=== PATIENT | male | born 1965 | race Caucasian/White ===

== ENCOUNTER 2023-02-25 09:53 | Emergency (ER) | payer OTHER, MEDICAID, SELFPAY ==
[2023-02-25 10:08] VITALS: BP 176/107; PULSE 82; RESP 18; TEMP 36.7; O2SAT 96; BMI 21.9
--- NOTE | 2023-02-25 10:31 | ED.BACK ---
HPI - Back Pain/Injury General Chief Complaint: Back Pain/Injury Stated Complaint: broken disc in back/leg numb/falling down Time Seen by Provider: 02/25/23 10:30 Source: patient History of Present Illness HPI Narrative: Patient brought here by his father. Complains of mid and lower back pain. Patient states 4 weeks ago he injured his mid back, he fell down any states he injured 2 bones in his mid back. He was seen at [facility]. He states he had CT scan imaging done. Four days ago he was working underneath his car trying to change out the transmission. He got up and felt a pop/pain his mid back. Pain radiates to his left foot. No loss control of bowel or bladder. No incontinence or retention since then. No saddle paresthesia. Boot removed patient not wearing socks. Related Data Allergies Allergy/AdvReac Type Severity Reaction Status Date / Time No Known Drug Allergies Allergy Verified 02/25/23 10:21 Review of Systems Review of Systems Narrative: GENERAL: negative chills, fatigue, malaise, fever, sweats. HEENT: negative sinus pain, ear pain, sore throat RESPIRATORY: negative dyspnea, cough CARDIOVASCULAR: negative chest pain, palpitations GASTROINTESTINAL: negative nausea, vomiting, abdominal pain : negative dysuria, frequency, hematuria MUSCULOSKELETAL: Positive back/muscle or bony pain SKIN: negative rash, skin lesions NEUROLOGIC: negative weakness, numbness ROS Unobtainable: All systems reviewed & are unremarkable except as noted in HPI and below Patient History Social History Smoking Status: Current every day smoker Smoking Status: Current every day smoker tobacco type: cigarettes alcohol intake frequency: 3 or more drinks per day Alcohol type: beer Substance Use Type: does not use Exam Narrative Exam Narrative: GENERAL: in no distress, not toxic not dyspneic HEAD: Normocephalic. EYES: Pupils equal round ENT: Mucous membranes moist. NECK: Trachea midline. CARDIOVASCULAR: Regular rate and rhythm RESPIRATORY: Clear to auscultation. Breath sounds equal bilaterally. No wheezes, rales, or rhonchi. GASTROINTESTINAL: Abdomen soft, non-tender EXTREMITIES: No gross deformities. BACK: No flank tenderness. There is midline tenderness at the midthoracic spine. No midline tenderness or step-off of the cervical thoracic or lumbar spine. Lower back nontender. Patient has pain with leaning forward and back. Also with doing side bends. Complains of mid back pain. Patient does have steady self gait in the hallway to his room. However slightly antalgic with the right leg but no foot drop. Increased pain with straight leg on the right at 60? NEURO: AOx4. Steady self gait. No foot drop. Strong bilateral patellar reflexes and ankle flexion-extension. Light touch intact to right foot. Wiggles toes. Strong bilateral ankle flexion-extension as well as patellar reflexes and hip flexion and extension. SKIN: Warm and dry PSYCH: Not anxious, is cooperative Initial Vital Signs Initial Vital Signs: Vital Signs Temperature 98.1 F 02/25/23 10:08 Pulse Rate 82 02/25/23 10:08 Respiratory Rate 18 02/25/23 10:08 Blood Pressure 176/107 H 02/25/23 10:08 Pulse Oximetry 96 02/25/23 10:08 Oxygen Delivery Method Room Air 02/25/23 10:08 Course Orders Ordered: ED Orders 02/25/23 10:31 CT lumbar spine wo con Stat CT thoracic spine wo con Stat 02/25/23 12:24 MR thoracic spine wo con Stat Discontinued Medications Hydromorphone HCl (Hydromorphone 1 Mg Inj) 1 mg IM NOW ONE Stop: 02/25/23 10:32 Last Admin: 02/25/23 10:48 Dose: 1 mg Documented By: ROOPA Hydromorphone HCl (Hydromorphone 1 Mg Inj) 1 mg IM NOW ONE Stop: 02/25/23 12:43 Last Admin: 02/25/23 13:22 Dose: 1 mg Documented By: ROOPA Lorazepam (Lorazepam 0.5 Mg Tablet) 1 mg PO NOW ONE Stop: 02/25/23 12:25 Last Admin: 02/25/23 13:44 Dose: 1 mg Documented By: ROOPA Ondansetron HCl (Ondansetron 4 Mg Odt) 4 mg SL NOW ONE Stop: 02/25/23 10:32 Last Admin: 02/25/23 10:47 Dose: 4 mg Documented By: ROOPA Vital Signs Vital signs: Vital Signs - 8 hr 02/25/23 10:08 02/25/23 12:14 02/25/23 13:49 Temperature 98.1 F Pulse Rate 82 95 H 104 H Respiratory Rate 18 16 20 Blood Pressure 176/107 H 113/83 146/94 H Pulse Oximetry 96 97 98 Oxygen Delivery Method Room Air Room Air Room Air 02/25/23 15:56 Temperature Pulse Rate 94 H Respiratory Rate 18 Blood Pressure 144/80 H Pulse Oximetry 97 Oxygen Delivery Method Room Air MDM - Back Pain/Injury Imaging Data CT lumbar spine: Radiologist's Impression: [address] [address] [address] Scan Report Signed Patient: Leanna Persaud MR#: [id number] : 1965 Acct:[id number] Age/Sex: 57 / M Date of Service: 02/25/23 Loc: ED Accession Number: [id number] Procedure: CT lumbar spine wo con Ordering Provider: Diaz Hightower MD PROCEDURE: CT LUMBAR SPINE WO CON INDICATIONS: Pain/injury TECHNIQUE: Noncontrast 3 mm thick sections acquired from the T12 level to the sacrum. Sagittal and coronal reformats were constructed. For radiation dose reduction, the following was used: automated exposure control. COMPARISON: None. FINDINGS: Image quality: Excellent. Bones: T11 and T12 compression deformities are partially characterized on this limited view of the thoracic spine. Vertebral body height of the lumbar spine is preserved. A Schmorl's node is present at the superior L1 and L3 endplates. Mild anterior osteophytes are present throughout the lumbar spine. There is overall preservation of the intervertebral disc spaces. No neural foraminal stenosis. No spondylolisthesis or spondylolysis. No canal stenosis. Soft tissues: No retroperitoneal masses or hematomas. Visualized aorta is normal in caliber. Dense atheromatous calcifications are present throughout the abdominal aorta and iliac arteries. Paraspinous hematoma is noted at the T12 vertebral body on axial views. IMPRESSION: 1. Mild degenerative change of the lumbar spine. No compression deformities. Dictated by: Lynette Mercado M.D. on 02/25/2023 at 12:05 Approved by: Lynette Mercado M.D. on 02/25/2023 at 12:07 CT thoracic spine: Radiologist's Impression: [address] [address] [address] Scan Report Signed Patient: Leanna Persaud MR#: [id number] : 1965 Acct:[id number] Age/Sex: 57 / M Date of Service: 02/25/23 Loc: ED Accession Number: [id number] Procedure: CT thoracic spine wo con Ordering Provider: Diaz Hightower MD PROCEDURE: CT THORACIC SPINE WO CON INDICATIONS: Pain/injury TECHNIQUE: Noncontrast 3 mm thick sections acquired through the region of interest in the thoracic spine. Sagittal and coronal reformats were then constructed. For radiation dose reduction, the following was used: automated exposure control. COMPARISON: [facility], CT, CT ABDOMEN PELVIS WITH CONTRAST, 01/31/2023, 21:52. [facility], CR, XR THORACIC SPINE 3 VIEWS, 02/09/2023, 22:07. FINDINGS: Image quality: Excellent. Bones: Acute compression deformities at T12 and T11 are redemonstrated and appear similar in extent to the plain films dated February 09, [address] dated March 02, 2023. As before, there is approximately 50% vertebral body height loss at T11 and approximately 25% vertebral body height loss at T12. No bony canal stenosis. Both fractures appear to involve the anterior and middle column. The posterior elements are not involved. No new compression deformities. Soft tissues: A small paravertebral hematoma surrounds the T11 and T12 vertebral bodies and appears slightly increased in extent when compared with the CT dated December 31, 2022. The thyroid gland is unremarkable. Scattered atheromatous calcifications are present within the aortic arch. No mediastinal or hilar adenopathy. The esophagus demonstrates normal course and caliber. There is moderate centrilobular emphysema with an apical predominance. No acute airspace opacities. No pleural effusion or pneumothorax. IMPRESSION: 1. Overall stable appearance of the T11 and T12 compression deformities when compared with the CT dated 01/31/23. The paraspinous hematoma is slightly increased in size when compared with the prior study. Otherwise, no interval change. Dictated by: Lynette Mercado M.D. on 02/25/2023 at 11:59 Approved by: Lynette Mercado M.D. on 02/25/2023 at 12:05 MRI thoracic spine: Radiologist's Impression: [address] [address] Magnetic Resonance Report Signed Patient: Leanna Persaud MR#: [id number] : 1965 Acct:[id number] Age/Sex: 57 / M Date of Service: 02/25/23 Loc: ED Accession Number: [id number] Procedure: MR thoracic spine wo con Ordering Provider: Diaz Hightower MD PROCEDURE: MR THORACIC SPINE WO CON INDICATIONS: Pain/injury TECHNIQUE: Noncontrast sagittal T1 spine echo and T2 fast spin echo, sagittal STIR, and T2 fast spin echo through the thoracic spine. COMPARISON: [facility], CR, XR THORACIC SPINE 3 VIEWS, 02/09/2023, 22:07. [facility], CT, CT THORACIC SPINE WITHOUT CONTRAST, 03/27/2020, 21:27. [facility], CT, CT THORACIC SPINE WO CON, 02/25/2023, 10:37. FINDINGS: Image quality: Excellent. Alignment and Curvature: Mild levoconvex scoliotic curvature is noted. Accentuated thoracic kyphosis is seen. Bone Marrow: Marrow is of normal overall signal. T11 and T12 anterior wedge deformities are again seen, with only minimal increased STIR signal. No acute appearing fractures are seen. Spinal Cord: Visualized spinal cord is normal in size and signal. Paraspinous Soft Tissues: No paravertebral masses. Miscellaneous: [id number] neural foraminal narrowing can be seen at the T10-T11 level. No significant central canal narrowing can be seen. IMPRESSION: Stable T11 and T12 anterior wedge deformities, which are likely subacute. Dictated by: Artis Chun M.D. on 02/25/2023 at 14:46 Approved by: Artis Chun M.D. on 02/25/2023 at 14:50 [facility] Narrative Medical decision making narrative: Patient brought here by his father. Complains of mid and lower back pain. Patient states 4 weeks ago he injured his mid back, he fell down any states he injured 2 bones in his mid back. He was seen at [facility]. He states he had CT scan imaging done. Four days ago he was working underneath his car trying to change out the transmission. He got up and felt a pop/pain his mid back. Pain radiates to his left foot. No loss control of bowel or bladder. No incontinence or retention since then. No saddle paresthesia. Boot removed patient not wearing socks. After history and exam Dilaudid/CT thoracic and lumbar spine MDM CC: Back pain/injury Complicating co-morbidities: Prior history of thoracic back injury Data collected from: Patient Medical records reviewed: No recent visit here for this complaint Differential considered: Includes but not limited to vertebral fracture thoracic strain lumbar strain radiculopathy bulge disc herniated disc cauda equina, cord compression Exam documented above, pertinent findings include: Tender midthoracic spine Imaging studies independently reviewed: CT lumbar spine no acute finding CT thoracic spine stable T11-T12 compression deformity with slightly increasing hematomas MRI thoracic spine stable T11 and T12 anterior wedge deformities which are likely subacute Consultations: None indicated at this time. No neuro deficits. Treatments: Dilaudid/Ativan Re-evaluations: 12:[address] imaging with patient. He states he does need something to help relax for his MRI if we are going to order 1 today. Reviewed with him the CT finding and would be prudent to evaluate for hematomas and surrounding structures and spine. He agrees. Pain is better at this time. He did receive Dilaudid 4:21 p.m.. Reviewed MRI results with patient and father. They do live in [place], I did find office number for ortho spine, Dr. Tomas morning that patient can call tomorrow for follow up appointment. He states he did not get a referral when he was seen there last month. Return precautions reviewed with patient. He is steady self gait, nonantalgic no foot drop time of discharge Discussion: Appropriate for discharge home. No neuro deficits. CT and MRI are reassuring as well as exam. Return precautions reviewed with patient. Father is driving. Nontoxic at discharge. They desire discharge home. Referral for ortho spine provided in [place] where they live. No prescriptions indicated at this time. Pain improved significantly at time of discharge. He is awake alert oriented x4 with clear speech Diagnosis: Thoracic back strain Discharge Plan Departure Patient Disposition: Home Clinical Impression: Thoracic back pain Qualifiers: Chronicity: acute Back pain laterality: midline Qualified Code(s): M54.6 - Pain in thoracic spine Instructions: DI for Back Strain or Sprain Activity Restrictions/Additional Instructions: No driving operating machinery today. Your CAT scan and MRI today have been done and does not show any significant changes from your previous CT scan. Please do call provided ortho spine provider in [place]. Call the office for next available office appointment. Return if worse if any questions or concerns. Referrals: Miscellaneous,[facility] [Primary Care Provider] - Diaz Forrest MD [Physician] - Stand Alone Forms: Patient Portal/API
[2023-02-25] MEDS: ONDANSETRON 4 MG ODT SL (10:47)
[2023-02-25] MEDS: HYDROMORPHONE 1 MG INJ IM ×2 (10:48→13:22)
--- NOTE | 2023-02-25 10:58 | PC.NURSE ---
patient refusing monitoring equipment. call light in reach. axo 4, rr even unlabored. skin wnl. nad noted.
[2023-02-25 12:14] VITALS: BP 113/83; PULSE 95; RESP 16; O2SAT 97
--- NOTE | 2023-02-25 12:21 | PC.NURSE ---
Dr Hightower at bedside w/ pt and pt family
--- NOTE | 2023-02-25 12:24 | DI.MRI.S_ITS ---
PROCEDURE: MR THORACIC SPINE WO CON INDICATIONS: Pain/injury TECHNIQUE: Noncontrast sagittal T1 spine echo and T2 fast spin echo, sagittal STIR, and T2 fast spin echo through the thoracic spine. COMPARISON: [facility], CR, XR THORACIC SPINE 3 VIEWS, 02/09/2023, 22:07. [facility], CT, CT THORACIC SPINE WITHOUT CONTRAST, 03/27/2020, 21:27. [facility], CT, CT THORACIC SPINE WO CON, 02/25/2023, 10:37. FINDINGS: Image quality: Excellent. Alignment and Curvature: Mild levoconvex scoliotic curvature is noted. Accentuated thoracic kyphosis is seen. Bone Marrow: Marrow is of normal overall signal. T11 and T12 anterior wedge deformities are again seen, with only minimal increased STIR signal. No acute appearing fractures are seen. Spinal Cord: Visualized spinal cord is normal in size and signal. Paraspinous Soft Tissues: No paravertebral masses. Miscellaneous: [id number] neural foraminal narrowing can be seen at the T10-T11 level. No significant central canal narrowing can be seen. IMPRESSION: Stable T11 and T12 anterior wedge deformities, which are likely subacute. Dictated by: Artis Chun M.D. on 02/25/2023 at 14:46 Approved by: Artis Chun M.D. on 02/25/2023 at 14:50
[2023-02-25] MEDS: LORazepam 0.5 MG TABLET 1 MG PO (13:44)
[2023-02-25 13:49] VITALS: BP 146/94; PULSE 104; RESP 20; O2SAT 98
[2023-02-25 15:56] VITALS: BP 144/80; PULSE 94; RESP 18; O2SAT 97
--- NOTE | 2023-02-25 16:19 | CM.MNRNOTE ---
pt outside of room, states i'm just ready to go, Dr. Hightower aware.
== END 2023-02-25 16:21 | disposition home or self-care (01) ==
PROVIDERS: Emergency Provider Emergency Medicine
DX: M54.6 Pain in thoracic spine (principal); X58.XXXA Exposure to other specified factors, initial encounter
CPT/HCPCS: 72128; 72131; 72146; 96372; 99283; 99284; J1170